=== PATIENT | male | born 1970 | race Caucasian/White ===

== ENCOUNTER 2016-09-10 21:24 | Emergency (ER) | payer BC ==
[~2016-09-10] VITALS: Ht 167.6 cm; Wt 81.6 kg
[~2016-09-10 21:24] MED LIST: VOLTAREN50 M1 PO
[2016-09-10] MEDS ORDERED: CIPRO250 MG PO (22:10)
== END 2016-09-10 22:03 | disposition home or self-care (01) ==
LOC: ED 21:24
DX: S91.331A Puncture wound without foreign body, right foot, initial encounter (principal); Z29.12 Encounter for prophylactic antivenin; Z88.0 Allergy status to penicillin; W22.8XXA Striking against or struck by other objects, initial encounter; Y93.89 Activity, other specified; Y92.9 Unspecified place or not applicable; Y99.9 Unspecified external cause status

== ENCOUNTER → 2020-02-21 | Outpatient (CLI) | payer BC ==
[~2020-02-21] MED LIST changes: +CIPRO250 MG PO
== END | disposition home or self-care (01) ==
LOC: COVID19 09:24
PROVIDERS: ATTEND Internal Medicine
DX: U07.1 COVID-19 (principal)

== ENCOUNTER 2022-09-29 00:16 | Emergency (ER) | payer BC ==
[2022-09-29] MEDS ORDERED: HYDROCODONE-AC1 EAC1 PO (00:52)
== END 2022-09-29 01:15 | disposition home or self-care (01) ==
LOC: ED 00:16
DX: S49.81XA Other specified injuries of right shoulder and upper arm, initial encounter (principal); Z88.0 Allergy status to penicillin; X50.0XXA Overexertion from strenuous movement or load, initial encounter; Y93.89 Activity, other specified; Y92.89 Other specified places as the place of occurrence of the external cause; Y99.0 Civilian activity done for income or pay

== ENCOUNTER → 2022-10-24 | Outpatient (CLI) | payer OTHER ==
[~2022-10-24] MED LIST changes: +HYDROCODONE-AC1 EAC1 PO
== END | disposition home or self-care (01) ==
LOC: MRI 01:35
PROVIDERS: ATTEND Orthopaedic Surgery
DX: S46.211A Strain of muscle, fascia and tendon of other parts of biceps, right arm, initial encounter (principal); M77.11 Lateral epicondylitis, right elbow; X58.XXXA Exposure to other specified factors, initial encounter; Y93.89 Activity, other specified; Y92.89 Other specified places as the place of occurrence of the external cause; Y99.8 Other external cause status